=== PATIENT | female | born 1955 | race African-American/Black ===

== ENCOUNTER 2016-11-30 12:30 | Emergency (ER) | payer MEDICARE, OTHER ==
[2016-11-30] MEDS ORDERED: NORMAL SALINE 1000 ML 1,000 ML IV ONE (12:56)
[2016-11-30 13:09] LABS: ABSOLUTE BASOPHILS # (AUTO) 0.1 10^3/uL (0.0-0.2); ABSOLUTE EOSINOPHILS # (AUTO) 0.1 10^3/uL (0.0-0.6); ABSOLUTE LYMPHOCYTES (AUTO) 2.4 10^3/uL (0.5-4.7); ABSOLUTE MONOCYTES (AUTO) 0.8 10^3/uL (0.1-1.4); ABSOLUTE NEUT (AUTO) 7.1 10^3/uL (1.7-8.2); BASOPHILS % (AUTO) 0.9 % (0-2); EOSINOPHILS % (AUTO) 1.3 % (0-6); HEMATOCRIT 43.8 % (36.0-47.0); HEMOGLOBIN 14.6 g/dL (12.0-15.5); LYMPHOCYTES % (AUTO) 22.9 % (13-45); MEAN CORPUSCULAR HEMOGLOBIN 30.8 pg (27.0-33.4); MEAN CORPUSCULAR HGB CONC 33.4 g/dL (32.0-36.0); MEAN CORPUSCULAR VOLUME 92 fl (80-97); MONOCYTES % (AUTO) 7.3 % (3-13); RED BLOOD COUNT 4.75 10^6/uL (3.72-5.28); RED CELL DISTRIBUTION WIDTH 14.7 % (11.5-14.0); SEGMENTED NEUTROPHILS % (AUTO) 67.6 % (42-78); WHITE BLOOD COUNT 10.5 10^3/uL (4.0-10.5)
[2016-11-30 13:16] LABS: PROTHROMBIN TIME 12.7 SEC (11.4-15.4)
[2016-11-30 13:26] LABS: ALANINE AMINOTRANSFERASE 29 U/L (9-52); ALBUMIN 4.5 g/dL (3.5-5.0); ALKALINE PHOSPHATASE 47 U/L (38-126); ANION GAP 14 (5-19); ASPARTATE AMINO TRANSFERASE 21 U/L (14-36); BILIRUBIN,DIRECT 0.3 mg/dL (0.0-0.4); BILIRUBIN,TOTAL 0.5 mg/dL (0.2-1.3); BLOOD UREA NITROGEN 26 mg/dL (7-20); CALCIUM 10.5 mg/dL (8.4-10.2); CARBON DIOXIDE 23 mmol/L (22-30); CHLORIDE 106 mmol/L (98-107); CREATINE KINASE 135 U/L (30-135); CREATININE RESULT 1.28 mg/dL (0.52-1.25); GLUCOSE 114 mg/dL (75-110); POTASSIUM 4.1 mmol/L (3.6-5.0); SODIUM 142.8 mmol/L (137-145); TOTAL PROTEIN 7.8 g/dL (6.3-8.2)
[2016-11-30 13:39] LABS: CREATINE KINASE MB 0.62 ng/mL (<4.55)
[2016-11-30 13:43] LABS: APPEARANCE,URINE SLIGHTLY-CLOUDY; BILIRUBIN,URINE NEGATIVE (NEGATIVE); GLUCOSE, URINE >=500 mg/dL (NEGATIVE); KETONES,URINE NEGATIVE (NEGATIVE); LEUKOCYTE ESTERASE,URINE NEGATIVE (NEGATIVE); NITRITE,URINE NEGATIVE (NEGATIVE); PROTEIN,URINE NEGATIVE (NEGATIVE); URINE SPECIFIC GRAVITY 1.025; UROBILINOGEN,URINE NEGATIVE mg/dL (<2.0)
[2016-11-30 13:45] LABS: TROPONIN I < 0.012 ng/mL
[2016-11-30 15:10] VITALS: BP 119/91
--- NOTE | 2016-11-30 15:16 | ER Document Report ---
ED General - General Chief Complaint: Near Syncope Stated Complaint: POSSIBLE SYNCOPE Time Seen by Provider: 11/30/16 12:55 TRAVEL OUTSIDE OF THE [place] 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 Patient states during this event no head pain chest pain abdominal pain no nausea no vomiting. Patient states after was fasting as she did become dizzy upon the [facility]. Patient states currently is taking blood pressure medication takes amlodipine and Diovan and Ranexa. Patient also states breast cancer survivor been cancer free for 11 years. Upon my evaluation patient blood pressure is hypotensive however patient has no other complaints. Patient states no nausea no vomiting no fevers or chills - Related Data Allergies/Adverse Reactions: No Known Allergies Allergy (Unverified 04/10/12 04:59) Past Medical History - Social History Smoking Status: Unknown if Ever Smoked Family History: Reviewed & Not Pertinent - Past Medical History Cardiac Medical History: Reports: Hx Hypercholesterolemia, Hx Hypertension Denies: Hx Coronary Artery Disease, Hx Heart Attack Pulmonary Medical History: Reports: Hx Asthma - uses inhaler, Hx Bronchitis, Hx COPD, Hx Pneumonia - walking x2 in 2009 Denies: Hx Tuberculosis Neurological Medical History: Denies: Hx Cerebrovascular Accident, Hx Seizures Endocrine Medical History: Reports: Hx Hypothyroidism GI Medical History: Reports: Hx Hepatitis Musculoskeltal Medical History: Reports Hx Arthritis - osteoarthritis Psychiatric Medical History: Reports: Hx Depression Infectious Medical History: Reports: Hx Hepatitis Past Surgical History: Reports: Hx Cholecystectomy. Denies: Hx Pacemaker - Immunizations Hx Diphtheria, Pertussis, Tetanus Vaccination: No Hx Pneumococcal Vaccination: 05/03/12 Review of Systems - Review of Systems Constitutional: No symptoms reported EENT: No symptoms reported Cardiovascular: Syncope, Other - Dizziness near syncope Respiratory: No symptoms reported Gastrointestinal: No symptoms reported Genitourinary: No symptoms reported Female Genitourinary: No symptoms reported Musculoskeletal: No symptoms reported Skin: No symptoms reported Hematologic/Lymphatic: No symptoms reported Neurological/Psychological: No symptoms reported Physical Exam - Vital signs Vitals: Pulse Resp BP Pulse Ox 76 18 120/68 98 11/30/16 12:54 11/30/16 12:54 11/30/16 12:54 11/30/16 12:54 Interpretation: Hypotensive - General General appearance: Appears well, Alert - HEENT Head: Normocephalic, Atraumatic Eyes: Normal Pupils: PERRL - Respiratory Respiratory status: No respiratory distress Chest status: Nontender Breath sounds: Normal Chest palpation: Normal - Cardiovascular Rhythm: Regular Heart sounds: Normal auscultation Murmur: No - Abdominal Inspection: Normal Distension: No distension Bowel sounds: Normal Tenderness: Nontender Organomegaly: No organomegaly - Back Back: Normal, Nontender - Extremities General upper extremity: Normal inspection, Nontender, Normal color, Normal ROM , Normal temperature General lower extremity: Normal inspection, Nontender, Normal color, Normal ROM , Normal temperature, Normal weight bearing. No: Veronique's sign - Neurological Neuro grossly intact: Yes Cognition: Normal Orientation: AAOx4 [place] Coma Scale Eye Opening: Spontaneous [place] Coma Scale Verbal: Oriented [place] Coma Scale Motor: Obeys Commands [place] Coma Scale Total: 15 Speech: Normal Motor strength normal: LUE, RUE, LLE, RLE Sensory: Normal - Psychological Associated symptoms: Normal affect, Normal mood - Skin Skin Temperature: Warm Skin Moisture: Dry Skin Color: Normal Course - Re-evaluation Re-evalutation: 11/30/16 18:40 With IV fluids patient blood pressure did improve. Patient was able ambulate without difficulty. More likely hypotension vasovagal versus dehydration versus overmedicated. Patient was requested to hold her Diovan in the morning follow with her PCP. Patient agrees with this plan. Patient was discharged home - Vital Signs Vital signs: Temp Pulse Resp BP Pulse Ox 72 15 119/91 H 99 11/30/16 13:44 11/30/16 15:01 11/30/16 15:01 11/30/16 15:01 - Laboratory Result Diagrams: 11/30/16 12:59 11/30/16 12:59 Laboratory results interpreted by me: 11/30/16 11/30/16 11/30/16 12:59 12:59 12:59 RDW 14.7 H BUN 26 H Creatinine 1.28 H Est GFR ( Amer) 52 L Est GFR (Non-Af Amer) 43 L Glucose 114 H Calcium 10.5 H Urine Glucose (UA) >=500 H Discharge - Discharge Clinical Impression: Near syncope, Transient hypotension Condition: Good Disposition: HOME, SELF-CARE Instructions: Near Syncopal Episode ([facility]), Hypotension ([facility]) Additional Instructions: I believe her symptoms today can be caused by too much blood pressure medication. Your blood pressure was very low upon arrival here in the ER. This is improved upon some time of observation. No high recommend following up with your doctor tomorrow for further evaluation of your blood pressure medications. I will give you copy of your laboratory be performed today to take to your doctor. More morning I would hold off on taking her Diovan will continue your other medications Forms: Smoking Cessation Education, Return to Work Referrals: DARLENE MURPHY MD [Primary Care Provider] - Follow up tomorrow
--- NOTE | 2016-11-30 17:00 | EKG REPORT ---
SEVERITY:- BORDERLINE ECG - SINUS RHYTHM PROBABLE LEFT ATRIAL ABNORMALITY : Confirmed by: Berry Andrade 30-Nov-2016 16:59:21
== END 2016-11-30 15:26 | disposition home or self-care (01) ==
LOC: ER 12:30
DX: R55 Syncope and collapse (principal); I95.9 Hypotension, unspecified; E78.00 Pure hypercholesterolemia, unspecified; I10 Essential (primary) hypertension; J44.9 Chronic obstructive pulmonary disease, unspecified; Z85.3 Personal history of malignant neoplasm of breast; Z90.49 Acquired absence of other specified parts of digestive tract
CPT/HCPCS: 93005; 99284; 96360; 36415; 82553; 82550; 85025; 85610; 80053; 81001; 84484; 71010; 93010; J7030